=== PATIENT | male | born 1985 | race Caucasian/White ===

== ENCOUNTER 2018-01-07 10:26 | Emergency (ER) | payer BC, MEDICAID ==
[~2018-01-07] VITALS: Ht 182.9 cm; Wt 55.0 kg
[2018-01-07 11:47] VITALS: BP 119/76
== END 2018-01-07 11:52 | disposition home or self-care (01) ==
LOC: ER 10:27
DX: R51 Headache (principal); Z60.2 Problems related to living alone
CPT/HCPCS: 99281

== ENCOUNTER 2018-03-13 23:07 | Emergency (ER) | payer BC, OTHER | END 2018-03-13 23:49 | disposition left against medical advice (07) | LOC: ER 23:07 | DX: N39.9 Disorder of urinary system, unspecified (principal); Z53.21 Procedure and treatment not carried out due to patient leaving prior to being seen by health care provider ==

== ENCOUNTER 2018-03-28 11:33 | Emergency (ER) | payer MEDICAID ==
[~2018-03-28] VITALS: Ht 185.4 cm; Wt 74.3 kg
[2018-03-28 11:37] VITALS: BP 140/86
[2018-03-28 12:56] LABS: CLARITY,URINE CLEAR (Clear); COLOR,URINE YELLOW (Yellow); GLUCOSE, URINE NEGATIVE (Neg); KETONES,URINE NEGATIVE (Neg); LEUKOCYTE ESTERASE ,URINE NEGATIVE (Neg); NITRITES, URINE NEGATIVE (Neg); OCCULT BLOOD,URINE NEGATIVE (Neg); PH,URINE 6.5 (4.8-8.0); PROTEIN,URINE NEGATIVE (Neg); UA COLLECTION TYPE CLN CATCH MIDSTREAM; UROBILINOGEN,URINE 0.2 E.U/dL (0.2-1.0)
[2018-03-28] MEDS ORDERED: LEVO500T2 PO (13:19)
[2018-03-28] MEDS ORDERED: levoFLOXACIN 750MG TABLET PO ONE (13:20)
[2018-03-28] MEDS ORDERED: azithromycin 250mg tablet PO ONE (13:45)
[2018-03-28] MEDS ORDERED: CefTRIAXone 1000mg IM Kit (w/lidocaine diluent) IM ONE (13:45)
[2018-03-28] MEDS ORDERED: metroNIDAZOLE 500mg tablet PO ONE (13:45)
[2018-03-28] MEDS ORDERED: PHEN-716 PO (13:56)
== END 2018-03-28 14:10 | disposition home or self-care (01) ==
LOC: ER 11:33
DX: N45.1 Epididymitis (principal); R30.0 Dysuria; Z79.899 Other long term (current) drug therapy
CPT/HCPCS: 36415; 76870; 81003; 87491; 87591; 96372; 99284; J0696; J3490

== ENCOUNTER 2018-04-19 15:30 | Emergency (ER) | payer MEDICAID ==
[~2018-04-19] VITALS: Ht 185.4 cm; Wt 74.1 kg
[~2018-04-19 15:30] MED LIST: PHEN-716 PO
[2018-04-19 15:52] VITALS: BP 125/76
[2018-04-19 17:10] LABS: CLARITY,URINE CLEAR (Clear); COLOR,URINE YELLOW (Yellow); GLUCOSE, URINE NEGATIVE (Neg); KETONES,URINE NEGATIVE (Neg); LEUKOCYTE ESTERASE ,URINE NEGATIVE (Neg); NITRITES, URINE NEGATIVE (Neg); OCCULT BLOOD,URINE NEGATIVE (Neg); PROTEIN,URINE NEGATIVE (Neg); UROBILINOGEN,URINE 0.2 E.U/dL (0.2-1.0)
[2018-04-19 17:11] LABS: UA COLLECTION TYPE CLN CATCH MIDSTREAM
[2018-04-19] MEDS ORDERED: FLUC100T PO (17:21)
== END 2018-04-19 17:37 | disposition home or self-care (01) ==
LOC: ER 15:31
DX: N48.89 Other specified disorders of penis (principal); R21 Rash and other nonspecific skin eruption; N50.82 Scrotal pain; R30.0 Dysuria
CPT/HCPCS: 36415; 81003; 87491; 99283

== ENCOUNTER 2018-05-05 13:56 | Emergency (ER) | payer MEDICAID ==
[~2018-05-05] VITALS: Ht 185.4 cm; Wt 75.0 kg
[2018-05-05 13:58] VITALS: BP 118/67
[2018-05-05 14:18] LABS: CLARITY,URINE CLEAR (Clear); COLOR,URINE STRAW (Yellow); GLUCOSE, URINE NEGATIVE (Neg); KETONES,URINE NEGATIVE (Neg); LEUKOCYTE ESTERASE ,URINE NEGATIVE (Neg); NITRITES, URINE NEGATIVE (Neg); OCCULT BLOOD,URINE NEGATIVE (Neg); PROTEIN,URINE NEGATIVE (Neg); UROBILINOGEN,URINE 0.2 E.U/dL (0.2-1.0)
[2018-05-05 14:19] LABS: UA COLLECTION TYPE VOIDED
[2018-05-05] MEDS ORDERED: HYDROcodone/acetaminophen 5mg/325mg tablet PO ONE (14:25)
== END 2018-05-05 15:11 | disposition home or self-care (01) ==
LOC: ER 13:56
DX: N43.2 Other hydrocele (principal); N50.812 Left testicular pain; Z88.1 Allergy status to other antibiotic agents; Z79.899 Other long term (current) drug therapy; Z60.2 Problems related to living alone
CPT/HCPCS: 36415; 76870; 81003; 87491; 99284

== ENCOUNTER 2018-09-20 09:41 | Emergency (ER) | payer MEDICAID ==
[~2018-09-20] VITALS: Ht 185.4 cm; Wt 74.0 kg
[~2018-09-20 09:41] MED LIST changes: +SULF1TAB48 PO
[2018-09-20 09:59] VITALS: BP 134/84
[2018-09-20 10:22] LABS: CLARITY,URINE CLEAR (Clear); COLOR,URINE STRAW (Yellow); GLUCOSE, URINE NEGATIVE (Neg); KETONES,URINE NEGATIVE (Neg); LEUKOCYTE ESTERASE ,URINE NEGATIVE (Neg); NITRITES, URINE NEGATIVE (Neg); OCCULT BLOOD,URINE NEGATIVE (Neg); PROTEIN,URINE NEGATIVE (Neg); UROBILINOGEN,URINE 0.2 E.U/dL (0.2-1.0)
[2018-09-20 10:28] LABS: UA COLLECTION TYPE NON-SPECIFIED
== END 2018-09-20 10:44 | disposition home or self-care (01) ==
LOC: ER 09:42
DX: R10.9 Unspecified abdominal pain (principal); R30.0 Dysuria; Z88.1 Allergy status to other antibiotic agents; Z79.899 Other long term (current) drug therapy
CPT/HCPCS: 81003; 99283